=== PATIENT | female | born 1935 | race Caucasian/White ===

== ENCOUNTER 2017-11-19 22:59 | Emergency (ER) | payer MEDICARE, OTHER ==
--- NOTE | 2017-11-19 23:39 | RAD ---
RADIOGRAPH CHEST 2 VIEWS: 11/19/17 HISTORY: 82-year-old female with dyspnea and choking sensation. FINDINGS: There is no air space density, pulmonary edema, pleural effusion, pneumothorax, or cardiomegaly. IMPRESSION: No acute cardiopulmonary findings. jn [] POS: RUTHY
[2017-11-19 23:47] LABS: #Lymphocytes 0.6 thou/uL (1.20-3.40); #Monocytes 0.5 thou/uL (0.11-0.59); #Neutrophils 3.5 thou/uL (1.40-6.50); %Basophils 0.8 % (0.0-1.0); %Eosinophils 0.9 % (0.0-10.0); %Lymphocytes 13.5 % (21.0-51.0); %Monocytes 10.6 % (0.0-10.0); %Neutrophils 74.2 % (42.0-75.0); Hemoglobin 13.3 g/dL (12.0-16.0); Mean Corpuscular Hemoglobin 30.2 pg (27.0-31.0); Mean Corpuscular Volume 91.7 fl (81.0-99.0); Mean Platelet Volume 7.8 fL (7.4-10.4); Platelet Count 153 thou/uL (130-400); RBC Distribution Width 11.9 % (11.5-14.5); White Blood Cell (WBC) Count 4.8 thou/uL (4.8-10.8)
--- NOTE | 2017-11-19 23:55 | RAD ---
RADIOGRAPH NECK SOFT TISSUES 2 VIEWS: 11/19/17 at 11:25 p.m. HISTORY: 82-year-old female with dyspnea and choking sensation after swallowing magnesium and calcium pills on e hour ago. FINDINGS: There is no radiopaque foreign body. No prevertebral soft tissue thickening. Normal thickness of the epiglottis; no evidence of supraglottic soft tissue swelling on the lateral view, and no evidence of subglottic tracheal narrowing. On the AP view, there is gaseous distention of the supraglottic airway asymmetrically positioned to the right of midline. There is multilevel degenerative facet disease, l eft greater than right. IMPRESSION: 1. No evidence of supraglottic or retropharyngeal soft tissue edema. 2. supraglottic airway distention. 3. No radiopaque foreign body. 4. Given the clinical history, consider CT of the neck soft tissues (preferably with IV contrast unless contraindicated). 5. 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 POS: RUTHY
[2017-11-20 00:17] LABS: CKMB 5.8 ng/mL (0-6.6); Troponin I Less than 0.010 ng/mL (< 0.028)
--- NOTE | 2017-11-20 07:39 | CT ---
CT THORAX NONCONTRAST: Date: 11/20/17 Time: 0005 hours HISTORY: 82-year-old female with choking sensation after swallowing magnesium and calcium pills 1 hour ago. Dy spnea. The geospatial information technologist states that the patient coughed up a pill prior to chest CT and immediately after the neck CT. FINDINGS: There is mild air-filled dilation of the lumen of almost the entire esophagus, except for the most di stal portion of the esophagus, which is collapsed. No pneumomediastinum. Lungs are clear of acute air space densities, pulmonary edema, bronchiectasis, bullous disease. No pleural effusion or pneumothor ax. No cardiomegaly. No thoracic aortic aneurysm. No mediastinal lymphadenopathy. No pericardial effu mallory. A small, 7 x 4 x 8 mm noncalcified, wedge-shaped pulmonary nodule in the right middle lobe, par tially abutting the anterior pleural surface. Large bilobed hepatic cyst in the right lobe of the jonathan er, which is demonstrated on an abdominal CT of 09/27/12. No calcific density foreign body is identif ied in the esophagus. Trachea and bronchi are patent and clear. IMPRESSION: 1. Currently, there is no radiopaque foreign body, but since the patient expelled one of her swallow ed pills immediately prior to this chest CT, there is highly likely to be a tight stricture in the lo wer esophagus. 2. Large, benign right hepatic cyst. 3. Nonspecific 8 mm right middle lobe pulmonary nodule. Recommend follow-up chest CT in 6 months. RADHA Miller POS: RUTHY
--- NOTE | 2017-11-20 07:42 | CT ---
CT NECK SOFT TISSUES NONCONTRAST: 11/19/2017 11:58 PM HISTORY: An 82-year-old female with foreign body sensation, lodged calcium or magnesium pill, resulting in dys pnea and dysphagia. FINDINGS: There is no calcific density or metallic density foreign body. There is a mildly dilated, air-filled upper esophageal lumen, superior to the T2-T3 level. At the T2-T3 level, the esophageal lumen is cl osed. Inferior to this, the esophagus is air-filled and mildly dilated again, down to the T4-T5 leve l, at which point there is fluid-filled lumen of a dilated esophagus. Both the collapsed lumen and t he fluid-filled lumen had resolved by the time of the CT of the chest, performed a few minutes later, after this CT of the neck. The patient orally expelled one of her swallowed pills in the time betwe en the CT of the neck and the CT of the chest. There is no pneumomediastinum or pneumothorax. Withi n the limitations of a noncontrast scan, no gross pathology is identified in the rest of the soft tis sues of the neck. There is no retropharyngeal edema or abscess. The bilateral piriform sinuses are dilated with air, right greater than left, which accounts for the appearance noted on the recent plai n radiograph of the neck. No soft tissue thickening or mass in the larynx. There is severe streak a rtifact obscuring large portions of the upper neck and lower head, arising from extensive metallic de ntal work. IMPRESSION: Abnormalities of the upper esophagus on the neck CT, which resolved subsequently by the time of the l ater chest CT. The patient expelled one of her swallowed pills after this neck CT, indicating that t here is a high grade stricture in the distal esophagus. POS: XIMENA
== END 2017-11-20 00:50 | disposition home or self-care (01) ==
LOC: SCSER 22:59
DX: K22.2 Esophageal obstruction (principal); E78.5 Hyperlipidemia, unspecified
CPT/HCPCS: 70360; 70490; 71046; 71250; 82553; 83880; 84484; 85025; 93005

== ENCOUNTER 2018-09-06 08:25 | Outpatient (CLI) | payer MEDICARE, OTHER ==
--- NOTE | 2018-09-06 10:15 | BD ---
BONE DENSITOMETRY: Indications: 82-year-old female for post-menopausal osteoporosis screening. Lumbar Spine: BMD (g/cm2) L1 0.717 T-Score: -2.5 L2 0.879 T-Score: -1.4 L3 0.905 T-Score: -1.6 L4 0.838 T-Score: -2.0 L1-L4 0.835 T-Score: -1.9 Femoral Neck: 0.542 T-Score: -2.8 Total Femur: 0.647 T-Score: -2.4 Impression: 1. Bone mineral density of the femoral neck indicates osteoporosis. 2. Bone mineral density of the lumbar spine indicates osteopenia. POS: RUTHY
== END 2018-09-06 08:26 | disposition home or self-care (01) ==
LOC: BICMAMMO 08:25
PROVIDERS: ATTEND Internal Medicine
DX: Z12.31 Encounter for screening mammogram for malignant neoplasm of breast (principal); M81.0 Age-related osteoporosis without current pathological fracture; M85.89 Other specified disorders of bone density and structure, multiple sites
CPT/HCPCS: 77063; 77067; 77080

== ENCOUNTER 2019-01-27 15:18 | Outpatient (CLI) | payer MEDICARE, OTHER ==
--- NOTE | 2019-01-27 17:57 | MRI ---
MRI OF THE LUMBAR SPINE WITHOUT CONTRAST: 01/27/19 HISTORY: Spinal stenosis of the lumbar region. Low back pain. Difficulty standing. COMPARISON: None. FINDINGS: Appropriate T1 marrow signal intensity of the lumbar vertebrae. Vertebral body height is maintained. No fracture. No significant STIR hyperintensity to suggest vertebral body edema or ligamentous injury . 3.9 mm of anterolisthesis of L3 upon L4, 3.2 mm of anterolisthesis of L4 upon L5. There are multiple T2 hyperintensities at the S1 and S2 level which may represent bilateral perineural sleeve cysts. The re is fluid in the right facet joint without significant edema at L5-S1. There is fluid with mild ed willam involving the right facet joint at L4-L5. T2 hyperintensities in the liver are presumed to be cysts. Evaluation is incomplete. The visualized solid organs are unremarkable. Symmetric signal intensity of paraspinal muscles. Conus medullaris t erminates at the T12-L1 disc space. T12-L1: No significant central canal stenosis or neural foraminal narrowing. L1-L2: Mild loss of disc space height. No significant central canal stenosis. Neural foramina are mil dly narrowed bilaterally. L2-L3: Desiccation with severe loss of disc space height. Generalized disc bulge minimally flattens t he ventral thecal sac. There is narrowing of the posterior thecal sac secondary to ligamentous flavum thickening and facet hypertrophy. Overall mild central canal stenosis. Moderate right and mild to mo derate left neural foraminal narrowing. L3-L4: Desiccation with moderate loss of disc space height. Broad based disc bulge, ligamentum flavum thickening and facet hypertrophy result in moderate central canal stenosis. Moderate right and mild to moderate left neural foraminal narrowing. L4-L5: No significant loss of disc space height. There is disc desiccation. Generalized disc bulge, ligamentum flavum thickening and facet hypertrophy result in mild central canal stenosis. There is fl uid in both facet joints. Mild bilateral neural foraminal narrowing. L5-S1: Desiccation without significant loss of disc space height. No significant central canal steno sis. Mild bilateral foraminal narrowing. There is a posterior right paraspinal synovial cyst measuring 0.9 cm. IMPRESSION: Degenerative changes of the lumbar spine as described above. POS: OFF
== END 2019-01-27 15:19 | disposition home or self-care (01) ==
LOC: BICMRI 15:18
PROVIDERS: ATTEND Orthopaedic Surgery
DX: M48.061 Spinal stenosis, lumbar region without neurogenic claudication (principal); M47.816 Spondylosis without myelopathy or radiculopathy, lumbar region
CPT/HCPCS: 72148

== ENCOUNTER 2020-11-19 10:41 | Outpatient (CLI) | payer MEDICARE, OTHER | END 2020-11-19 10:42 | disposition home or self-care (01) | LOC: BICMAMMO 10:41 | PROVIDERS: ATTEND Internal Medicine | DX: Z12.31 Encounter for screening mammogram for malignant neoplasm of breast (principal) | CPT/HCPCS: 77063; 77067 ==